=== PATIENT | female | born 1985 | race Caucasian/White ===

== ENCOUNTER 2020-04-09 06:58 | Inpatient (IN) | payer SELFPAY ==
[~2020-04-09 06:58] MED LIST: Bupivacaine 0.25% 10 ML SDV ONE; ePHEDrine Sulfate/0.9% NaCl/Pf 25 MG/5 ML SYRINGE IV ONE
[2020-04-09] MEDS ORDERED: Nalbuphine 10 MG/1 ML Vial IVPUSH PRN (07:18)
[2020-04-09] MEDS ORDERED: Sodium Chloride 0.9% 10 ML Syringe FLUSH PRN (07:18)
[2020-04-09] MEDS ORDERED: Ondansetron 4 MG/2 ML SDV IVPUSH PRN ×2 (07:18→14:11)
--- NOTE | 2020-04-09 07:21 | PCM.LDHP ---
L&D History of Present Illness - General Date of Service: 04/09/20 Admit Problem/Dx: Patient Status Order with Admit Dx/Problem 04/09/20 07:18 Patient Status [ADT] Routine Admission Diagnosis/Problem Admission Diagnosis/Problem Normal labor Source of Information: Patient History Limitations: Reports: No Limitations - History of Present Illness Introduction:: Patient is a 34 y/o at 39 1/7 wks who presents for IOL. Doing well. No significant contractions yet - Related Data Allergies/Adverse Reactions: Allergies Allergy/AdvReac Type Severity Reaction Status Date / Time azithromycin Allergy Hives Verified 04/09/20 10:00 [From Zithromax Z-Konrad] Home Medications: Home Meds Pnv with Ca,No.71/Iron/Fa [ Vitamin Tablet] 1 each PO DAILY 12/31/13 [History] Docusate Sodium [Colace] 100 mg PO BID PRN #60 cap 01/07/14 [Rx] Calcium Carbonate [Tums] 500 mg PO ASDIRECTED PRN 04/09/20 [History] Famotidine [Pepcid] 10 mg PO BID 04/09/20 [History] Past Medical History [employer] History: Reports: : 2 Para: 1 LMP (Approximate): Psychiatric History: Reports: Anxiety - Past Surgical History Other Surgical History Comment: No past surgical history Social & Family History - Tobacco Use Tobacco Use Status *Q: Never Tobacco User - Alcohol Use Alcohol Use History: No - Recreational Drug Use Recreational Drug Use: No H&P Review of Systems - Review of Systems: Review Of Systems: See Below General: Reports: No Symptoms Pulmonary: Reports: No Symptoms Cardiovascular: Reports: No Symptoms Gastrointestinal: Reports: No Symptoms Genitourinary: Reports: No Symptoms Musculoskeletal: Reports: No Symptoms Psychiatric: Reports: No Symptoms Neurological: Reports: No Symptoms L&D Exam - Exam Exam: See Below - OB Specific Contraction Intensity: Irritability Movement: Active Heart Tones: Present Heart Tones per Min: 140 Heart Rate (FHR) Variability: Moderate (6-25 bmp) Presentation: Vertex - Coreas Score Coreas Score Cervix Position: Midposition Coreas Score Consistency: Soft Coreas Score Effacement: 31-50% Coreas Score Dilation: 1-2 cm Coreas Score Infant's Station: -3 Coreas Score Total: 5 - Exam General: Alert, Oriented, Cooperative Lungs: Clear to Auscultation, Normal Respiratory Effort Cardiovascular: Regular Rate, Regular Rhythm GI/Abdominal Exam: Soft, Non-Tender Genitourinary: Normal external exam Extremities: Normal Inspection Skin: Warm, Dry, Intact - Patient Data Result Diagrams: 04/09/20 07:54 - Problem List (1) 39 weeks gestation of SNOMED Code(s): 54708618 ICD Code: Z3A.39 - 39 WEEKS GESTATION OF Status: Acute Current Visit: Yes (2) Rh negative state in antepartum period SNOMED Code(s): 775435968 ICD Code: O26.899 - OTH RELATED CONDITIONS, UNSPECIFIED TRIMESTER; Z67.91 - UNSPECIFIED BLOOD TYPE, RH NEGATIVE Status: Acute Current Visit: Yes Problem List Initiated/Reviewed/Updated: Yes Orders Last 24hrs: Active Orders 24 hr Category Date Time Status Patient Status [ADT] Routine ADT 04/09/20 07:18 Ordered Activity as Tolerated [RC] PFP Care 04/09/20 07:18 Ordered Communication Order [RC] ASDIRECTED Care 04/09/20 07:18 Ordered Communication Order [RC] ASDIRECTED Care 04/09/20 07:18 Ordered Communication Order [RC] ASDIRECTED Care 04/09/20 07:18 Ordered Heart Tones [RC] ASDIRECTED Care 04/09/20 07:19 Ordered Monitoring [RC] INTERMITTENT Care 04/09/20 07:18 Ordered Non Stress Test [RC] PER UNIT ROUTINE Care 04/09/20 07:18 Ordered Non Stress Test [RC] PER UNIT ROUTINE Care 04/09/20 07:18 Ordered Notify Provider [RC] ASDIRECTED Care 04/09/20 07:18 Ordered Notify Provider [RC] PFP Care 04/09/20 07:18 Ordered Notify Provider [RC] PRN Care 04/09/20 07:18 Ordered Peripheral IV Care [RC] . DIRECTED Care 04/09/20 07:19 Ordered Vaginal Exam [RC] ASDIRECTED Care 04/09/20 07:18 Ordered Vital Signs [RC] ASDIRECTED Care 04/09/20 07:18 Ordered Vital Signs [RC] PER UNIT ROUTINE Care 04/09/20 07:18 Ordered Regular Diet [DIET] Diet 04/09/20 Breakfast Ordered CBC W/O DIFF,HEMOGRAM [HEME] Routine Lab 04/09/20 07:18 Ordered RAPID PLASMA REAGIN,RPR [CHEM] Routine Lab 04/09/20 07:18 Ordered TYPE AND SCREEN [BBK] Routine Lab 04/09/20 07:18 Ordered Lactated Ringers [Ringers, Lactated] 1,000 ml Med 04/09/20 07:30 Ordered IV ASDIRECTED Lactated Ringers [Ringers, Lactated] 1,000 ml Med 04/09/20 07:30 Ordered IV ASDIRECTED Nalbuphine [Nubain] Med 04/09/20 07:18 Ordered 10 mg IVPUSH Q2H PRN Ondansetron [Zofran] Med 04/09/20 07:18 Ordered 4 mg IVPUSH Q4H PRN Oxytocin/Lactated Ringers [Pitocin in LR 10 Units/1,000 Med 04/09/20 07:30 Ordered ML] 10 unit in 1,000 ml IV .CONTINUOUS Oxytocin/Lactated Ringers [Pitocin in LR 10 Units/1,000 Med 04/09/20 07:30 Ordered ML] 10 unit in 1,000 ml IV TITRATE Sodium Chloride 0.9% [Saline Flush] Med 04/09/20 07:18 Ordered 10 ml FLUSH ASDIRECTED PRN Electronic Heart Tones Ext w TOCO [WOMSER] Oth 04/09/20 07:18 Ordered Routine Electronic Heart Tones Internal [WOMSER] Per Unit Oth 04/09/20 07:18 Ordered Routine Peripheral IV Insertion Adult [OM.PC] Routine Oth 04/09/20 07:18 Ordered Peripheral IV Insertion Adult [OM.PC] Routine Ot 04/09/20 07:18 Ordered Assessment/Plan Comment:: * Labs * GBS negative * Pitocin and then AROM for IOL * Pain management per patient preference * Anticipate
[2020-04-09] MEDS ORDERED: Lactated Ringers 1,000 ML IV SCH (07:30)
[2020-04-09] MEDS ORDERED: Oxytocin/Lactated Ringers 10 UNIT/1,000 ML BAG IV SCH ×2 (07:30)
[2020-04-09] MEDS: Lactated Ringers 1,000 ML IV SCH ×2 (07:55→13:47)
--- NOTE | 2020-04-09 11:50 | PCM.PNLD ---
Labor Progress Note - VS & Meds Vital Signs: Last Vital Signs Temp 37.0 C 04/09/20 07:29 Pulse 79 04/09/20 07:29 Resp 16 04/09/20 07:29 BP 131/85 04/09/20 07:29 Pulse Ox 100 04/09/20 07:29 Active Medications: Current Medications Lactated Ringer's (Ringers, Lactated) 1,000 mls @ 100 mls/hr IV ASDIRECTED PEYTON Last Admin: 04/09/20 07:55 Dose: 100 mls/hr Documented by: Oxytocin/Lactated Ringer's (Pitocin In Lr 10 Units/1,000 Ml) 10 unit in 1,000 mls @ 12 mls/hr IV TITRATE PEYTON; Protocol Last Admin: 04/09/20 07:55 Dose: 2 munits/min, 12 mls/hr Documented by: Oxytocin/Lactated Ringer's (Pitocin In Lr 10 Units/1,000 Ml) 10 unit in 1,000 mls @ 500 mls/hr IV .CONTINUOUS PEYTON Lactated Ringer's (Ringers, Lactated) 1,000 mls @ 40 mls/hr IV ASDIRECTED PEYTON Nalbuphine HCl (Nubain) 10 mg IVPUSH Q2H PRN PRN Reason: Pain Ondansetron HCl (Zofran) 4 mg IVPUSH Q4H PRN PRN Reason: Nausea/Vomiting Sodium Chloride (Saline Flush) 10 ml FLUSH ASDIRECTED PRN PRN Reason: Keep Vein Open - Uterine Contractions Uterine Monitoring Mode: External Fitzgerald Contraction Intensity: Mild to Moderate - Monitoring Monitor Mode: External Ultrasound Heart Rate (FHR) Baseline: 130 Heart Rate (FHR) Variability: Moderate (6-25 bmp) Accelerations: Present, 15x15 Decelerations: None Strip Review: Category I - Vaginal Exam Dilation (cm): 3 Effacement (Percent): 25 Station: -2 Cervical Position: Midposition - Labor Progress (Free Text) Labor Progress: Doing well. Pitocin at 12. AROM done with release of clear fluid. Continue present management
[2020-04-09] MEDS ORDERED: ePHEDrine 50 MG/ML SDV IVPUSH PRN (14:11)
[2020-04-09] MEDS ORDERED: diphenhydrAMINE 50 MG/ML SDV IVPUSH PRN (14:11)
[2020-04-09] MEDS ORDERED: fentaNYL 100 MCG/2 ML SDV EPIDUR PRN (14:11)
[2020-04-09] MEDS ORDERED: Bupivacaine/fentaNYL/NS 100 ML Bag EPIDUR SCH (14:15)
--- NOTE | 2020-04-09 14:15 | PCM.PREANE ---
Preanesthetic Assessment - Procedure Proposed Procedure: Epidural - Anesthesia/Transfusion/Family Hx Anesthesia History: Prior Anesthesia Without Reaction Family History of Anesthesia Reaction: No Transfusion History: No Prior Transfusion(s) Intubation History: Unknown - Review of Systems General: No Symptoms Pulmonary: No Symptoms (ETOH: occasionally when not ) Cardiovascular: No Symptoms (History of heart murmur in the past.), Palpitations Gastrointestinal: No Symptoms (GERD) Neurological: No Symptoms, Seizure (At the age of 18) Other: Reports: Easy Bruising, Depression, Anxiety - Physical Assessment NPO Status Date: 04/09/20 NPO Status Time: 14:30 Vital Signs: Last Vital Signs Temp 37.0 C 04/09/20 07:29 Pulse 79 04/09/20 07:29 Resp 16 04/09/20 07:29 BP 131/85 04/09/20 07:29 Pulse Ox 100 04/09/20 07:29 Height: 1.65 m Weight: 105.687 kg ASA Class: 2 Mental Status: Alert & Oriented x3 Airway Class: Mallampati = 2 Dentition: Reports: Normal Dentition, Caries Thyro-Mental Finger Breadths: 3 Mouth Opening Finger Breadths: 3 ROM/Head Extension: Full Lungs: Clear to Auscultation, Normal Respiratory Effort Cardiovascular: Regular Rate, Regular Rhythm, No Murmurs - Lab Values: Laboratory Last Values WBC 9.16 K/mm3 (3.98-10.04) 04/09/20 07:54 RBC 3.72 M/mm3 (3.98-5.22) L 04/09/20 07:54 Hgb 11.2 gm/dl (11.2-15.7) D 04/09/20 07:54 Hct 32.6 % (34.1-44.9) L 04/09/20 07:54 MCV 87.6 fl (79.4-94.8) D 04/09/20 07:54 MCH 30.1 pg (25.6-32.2) 04/09/20 07:54 MCHC 34.4 g/dl (32.2-35.5) 04/09/20 07:54 RDW Std Deviation 41.5 fL (36.4-46.3) 04/09/20 07:54 Plt Count 279 K/mm3 (182-369) D 04/09/20 07:54 MPV 9.2 fl (9.4-12.3) L 04/09/20 07:54 SARS-CoV-2 RNA (SHANNON) Negative (NEGATIVE) 04/09/20 08:10 Blood Type O NEGATIVE 04/09/20 07:54 Gel Antibody Screen Negative 04/09/20 07:54 Above labs reviewed and noted and within acceptable ranges to proceed with epidural if desired. - Allergies Allergies/Adverse Reactions: Allergies Allergy/AdvReac Type Severity Reaction Status Date / Time azithromycin Allergy Hives Verified 04/09/20 10:00 [From Zithromax Z-Konrad] - Anesthesia Plan Pre-Op Medication Ordered: None - Acknowledgements Anesthesia Type Planned: Epidural Pt an Appropriate Candidate for the Planned Anesthesia: Yes Alternatives and Risks of Anesthesia Discussed w Pt/Guardian: Yes Pt/Guardian Understands and Agrees with Anesthesia Plan: Yes PreAnesthesia Questionnaire - Past Health History Medical/Surgical History: Denies Medical/Surgical History HEENT History: Reports: Impaired Vision, Other (See Below) Other HEENT History: KASAAN left ear Cardiovascular History: Reports: Other (See Below) Other Cardiovascular History: Pt states she used to have a heart murmur, but now its good. Has random heart flutters, checked out all normal. Respiratory History: Reports: None Gastrointestinal History: Reports: GERD Genitourinary History: Reports: UTI, Recurrent [employer] History: Reports: Other OB/BYN History: States after 1st baby, came back after discharge d/t "uterus infection" that she needed antibiotics for. Musculoskeletal History: Reports: Other (See Below) Other Musculoskeletal History: Joint pain everywhere when up and around too much Neurological History: Reports: Seizure, Other (See Below) Other Neuro History: One seizure at 18 years old, never another one and no diagnosis Psychiatric History: Reports: Anxiety Other Psychiatric History: Once when she was 21 years old, never on medication before or since attempt Hematologic History: Reports: Anemia - Past Surgical History Other Surgical History Comment: No past surgical history - SUBSTANCE USE Tobacco Use Status *Q: Never Tobacco User Tobacco Use Within Last Twelve Months: No Recreational Drug Use History: No - HOME MEDS Home Medications: Home Meds Pnv with Ca,No.71/Iron/Fa [ Vitamin Tablet] 1 each PO DAILY 12/31/13 [History] Docusate Sodium [Colace] 100 mg PO BID PRN #60 cap 01/07/14 [Rx] Calcium Carbonate [Tums] 500 mg PO ASDIRECTED PRN 04/09/20 [History] Famotidine [Pepcid] 10 mg PO BID 04/09/20 [History] - CURRENT (IN HOUSE) MEDS Current Meds: Current Medications Diphenhydramine HCl (Benadryl) 25 mg IVPUSH Q6H PRN PRN Reason: pruritis Ephedrine Sulfate (Ephedrine Sulfate) 5 mg IVPUSH ASDIRECTED PRN PRN Reason: Hypotension Fentanyl (Sublimaze) 100 mcg EPIDUR Q3H PRN PRN Reason: Pain Fentanyl/Bupivacaine HCl (Fentanyl/Bupivacaine/Ns 2 Mcg-0.125% 100 Ml) 100 ml EPIDUR ASDIRECTED PEYTON Lactated Ringer's (Ringers, Lactated) 1,000 mls @ 100 mls/hr IV ASDIRECTED PEYTON Last Admin: 04/09/20 13:47 Dose: 100 mls/hr Documented by: Oxytocin/Lactated Ringer's (Pitocin In Lr 10 Units/1,000 Ml) 10 unit in 1,000 mls @ 12 mls/hr IV TITRATE PEYTON; Protocol Last Titration: 04/09/20 11:00 Dose: 8 munits/min, 48 mls/hr Documented by: Oxytocin/Lactated Ringer's (Pitocin In Lr 10 Units/1,000 Ml) 10 unit in 1,000 mls @ 500 mls/hr IV .CONTINUOUS PYETON Lactated Ringer's (Ringers, Lactated) 1,000 mls @ 40 mls/hr IV ASDIRECTED [facility], [facility]–1983 Miscellaneous Medication (Phenylephrine 1 Mg/10 Ml-Ns) 0 mg IVPUSH ONETIME ONE Stop: 04/09/20 14:12 Nalbuphine HCl (Nubain) 10 mg IVPUSH Q2H PRN PRN Reason: Pain Ondansetron HCl (Zofran) 4 mg IVPUSH Q4H PRN PRN Reason: Nausea/Vomiting Ondansetron HCl (Zofran) 4 mg IVPUSH ONETIME PRN PRN Reason: Nausea/Vomiting Sodium Chloride (Saline Flush) 10 ml FLUSH ASDIRECTED PRN PRN Reason: Keep Vein Open
[2020-04-09] MEDS ORDERED: Acetaminophen 325 MG Tab PO PRN (21:07)
[2020-04-09] MEDS ORDERED: Docusate Sodium 100 MG Cap PO PRN (21:07)
[2020-04-09] MEDS: Witch Hazel Medicated Pads 40/Jar TOP PRN (23:00)
[2020-04-09] MEDS: Ibuprofen 600 MG Tab PO PRN (23:30)
[2020-04-10] MEDS ORDERED: Benzocaine/Menthol 20%-0.5% Spray 56 GM Canister TOP PRN (00:14)
[2020-04-10] MEDS: Ibuprofen 600 MG Tab PO PRN ×2 (06:06→12:48)
--- NOTE | 2020-04-10 07:08 | PCM.DEL ---
L & D Note - General Info Date of Service: 04/09/20 - Delivery Note Labor: Induced by ARM, Induced by Oxytocin Delivery Outcome: Livebirth Infant Delivery Method: Spontaneous Vaginal Delivery-Single Infant Delivery Mode: Spontaneous Presentation: Right Occiput Anterior (RAQUEL) Nuchal Cord: None Anesthesia Type: Epidural Amniotic Fluid Description: Clear Episiotomy Type: None Laceration: 1st Degree Suture type: Vicryl Placenta: Intact, Spontaneous Cord: 3 Vessels Estimated Blood Loss: 100 Resuscitation Needed: Yes : Bulb Syringe, Stimulated, Warmed, Gilbert Used, Warmer Used Delivery Comments (Free Text/Narrative):: Patient progressed quickly to 8-9 cm, but then labor slowed. Eventually after restarting pitocin, turning to hands/knees was able to achieve complete dilation. With maternal pushing effort head delivered from an RAQUEL presentation. No nuchal cord present. With gentle downward traction shoulders and body delivered. Infant placed on maternal abdomen. Cord clamped and cut. Cord blood obtained. Placenta allowed time to separate and expelled intact. Inspection of perineum showed a small 1st degree laceration which was repaired with an interrupted 2-0 Vicryl. - General Info Date of Service: 04/09/20 - Patient Data Vitals - Most Recent: Last Vital Signs Temp 36.7 C 04/10/20 02:21 Pulse 82 04/10/20 02:21 Resp 15 04/10/20 02:21 BP 125/73 04/10/20 02:21 Pulse Ox 98 04/10/20 02:21 Weight - Most Recent: 105.687 kg I&O - Last 24 Hours: Intake & Output 04/09/20 04/10/20 04/10/20 22:59 06:59 14:59 Intake Total 5520 Output Total 700 Balance 4820 Lab Results Last 24 Hours: Laboratory Results - last 24 hr 04/09/20 04/09/20 04/09/20 Range/Units 07:54 07:54 07:54 WBC 9.16 (3.98-10.04) K/mm3 RBC 3.72 L (3.98-5.22) M/mm3 Hgb 11.2 D (11.2-15.7) gm/dl Hct 32.6 L (34.1-44.9) % MCV 87.6 D (79.4-94.8) fl MCH 30.1 (25.6-32.2) pg MCHC 34.4 (32.2-35.5) g/dl RDW Std Deviation 41.5 (36.4-46.3) fL Plt Count 279 D (182-369) K/mm3 MPV 9.2 L (9.4-12.3) fl RPR Non-reactive (NONREACTIVE) SARS-CoV-2 RNA (SHANNON) (NEGATIVE) Blood Type O NEGATIVE Gel Antibody Screen Negative 04/09/20 Range/Units 08:10 WBC (3.98-10.04) K/mm3 RBC (3.98-5.22) M/mm3 Hgb (11.2-15.7) gm/dl Hct (34.1-44.9) % MCV (79.4-94.8) fl MCH (25.6-32.2) pg MCHC (32.2-35.5) g/dl RDW Std Deviation (36.4-46.3) fL Plt Count (182-369) K/mm3 MPV (9.4-12.3) fl RPR (NONREACTIVE) SARS-CoV-2 RNA (SHANNON) Negative (NEGATIVE) Blood Type Gel Antibody Screen Med Orders - Current: Current Medications Acetaminophen (Tylenol) 650 mg PO Q4H PRN PRN Reason: mild pain or fever Benzocaine/Menthol (Dermoplast Pain Relief [place]) 1 gm TOP ASDIRECTED PRN PRN Reason: Perineal Comfort Measure Last Admin: 04/10/20 06:06 Dose: 1 canister Documented by: Docusate Sodium (Colace) 100 mg PO BID PRN PRN Reason: Constipation Last Admin: 04/09/20 23:30 Dose: 100 mg Documented by: Ibuprofen (Motrin) 600 mg PO Q6H PRN PRN Reason: Mild pain or fever Last Admin: 04/10/20 06:06 Dose: 600 mg Documented by: Oma Hernandez (Maricel) 1 pad TOP ASDIRECTED PRN PRN Reason: Perineal Comfort Measure Last Admin: 04/09/20 23:00 Dose: 1 container Documented by: Discontinued Medications Diphenhydramine HCl (Benadryl) 25 mg IVPUSH Q6H PRN PRN Reason: pruritis Ephedrine Sulfate (Ephedrine Sulfate) 5 mg IVPUSH ASDIRECTED PRN PRN Reason: Hypotension Fentanyl (Sublimaze) 100 mcg EPIDUR Q3H PRN PRN Reason: Pain Last Admin: 04/09/20 15:14 Dose: 100 mcg Documented by: Fentanyl/Bupivacaine HCl (Fentanyl/Bupivacaine/Ns 2 Mcg-0.125% 100 Ml) 100 ml EPIDUR ASDIRECTED PEYTON Last Admin: 04/09/20 15:14 Dose: 100 ml Documented by: Lactated Ringer's (Ringers, Lactated) 1,000 mls @ 100 mls/hr IV ASDIRECTED PEYTON Last Admin: 04/09/20 13:47 Dose: 100 mls/hr Documented by: Oxytocin/Lactated Ringer's (Pitocin In Lr 10 Units/1,000 Ml) 10 unit in 1,000 mls @ 12 mls/hr IV TITRATE PEYTON; Protocol Last Titration: 04/09/20 18:56 Dose: 4 munits/min, 24 mls/hr Documented by: Oxytocin/Lactated Ringer's (Pitocin In Lr 10 Units/1,000 Ml) 10 unit in 1,000 mls @ 500 mls/hr IV .CONTINUOUS PEYTON Lactated Ringer's (Ringers, Lactated) 1,000 mls @ 40 mls/hr IV ASDIRECTED [facility] Miscellaneous Medication (Phenylephrine 1 Mg/10 Ml-Ns) 0 mg IVPUSH ONETIME PEYTON Nalbuphine HCl (Nubain) 10 mg IVPUSH Q2H PRN PRN Reason: Pain Ondansetron HCl (Zofran) 4 mg IVPUSH Q4H PRN PRN Reason: Nausea/Vomiting Ondansetron HCl (Zofran) 4 mg IVPUSH ONETIME PRN PRN Reason: Nausea/Vomiting Sodium Chloride (Saline Flush) 10 ml FLUSH ASDIRECTED PRN PRN Reason: Keep Vein Open - Problem List & Annotations (1) 39 weeks gestation of SNOMED Code(s): 25980892 Code(s): Z3A.39 - 39 WEEKS GESTATION OF Status: Acute Current Visit: Yes (2) Rh negative state in antepartum period SNOMED Code(s): 740791137 Code(s): O26.899 - OTH RELATED CONDITIONS, UNSPECIFIED TRIMESTER; Z67.91 - UNSPECIFIED BLOOD TYPE, RH NEGATIVE Status: Acute Current Visit: Yes (3) Vaginal delivery SNOMED Code(s): 293510082 Code(s): O80 - ENCOUNTER FOR FULL-TERM UNCOMPLICATED DELIVERY Status: Acute Current Visit: No - Problem List Review Problem List Initiated/Reviewed/Updated: Yes - My Orders Last 24 Hours: My Active Orders 04/09/20 Dinner Regular Diet [DIET] 04/09/20 21:07 Acetaminophen [TylenoL] 650 mg PO Q4H PRN Docusate Sodium [Colace] 100 mg PO BID PRN Ibuprofen [Motrin] 600 mg PO Q6H PRN witch Fer [Tucks] 1 pad TOP ASDIRECTED PRN Heat Therapy [OM.PC] PRN 04/09/20 21:07 Activity as Tolerated [RC] PER UNIT ROUTINE Vital Signs [RC] 03,,15,21 Assess Lochia [WOMSER] Per Unit Routine Assess Uterine Involution [WOMSER] Per Unit Routine Breast Pump [WOMSER] Per Unit Routine Ice Therapy [OM.PC] Per Unit Routine Perineal Care [OM.PC] Per Unit Routine Peripheral IV Discontinue [OM.PC] Routine Sitz Bath [OM.PC] Per Unit Routine 04/10/20 00:14 Benzocaine/Menthol [Dermoplast Pain Relief [place]] 1 gm TOP ASDIRECTED PRN 04/10/20 21:07 Heat Therapy [OM.PC] PRN - Assessment Assessment:: PPD#0 - Plan Plan:: * Routine cares * Breast feeding * Assess baby blood type following delivery * Discharge home in 1-2 days
--- NOTE | 2020-04-10 07:37 | PCM48HPAN ---
Post Anesthesia Note - EVALUATION WITHIN 48HRS OF ANESTHETIC Vital Signs in Normal Range: Yes Patient Participated in Evaluation: Yes Respiratory Function Stable: Yes Airway Patent: Yes Cardiovascular Function Stable: Yes Hydration Status Stable: Yes Pain Control Satisfactory: Yes Nausea and Vomiting Control Satisfactory: Yes Mental Status Recovered: Yes Vital Signs: Last Vital Signs Temp 36.7 C 04/10/20 02:21 Pulse 82 04/10/20 02:21 Resp 15 04/10/20 02:21 BP 125/73 04/10/20 02:21 Pulse Ox 98 04/10/20 02:21
[2020-04-10] MEDS: Witch Hazel Medicated Pads 40/Jar TOP PRN (12:52)
--- NOTE | 2020-04-10 18:02 | PCM.DCSUM1 ---
Discharge Summary - Discharge Data Discharge Date: 04/10/20 Discharge Disposition: Home, Self-Care 01 Condition: Good - Referral to Home Health Primary Care Physician: Aparna Bethea MD - Discharge Diagnosis/Problem(s) (1) 39 weeks gestation of SNOMED Code(s): 90344343 ICD Code: Z3A.39 - 39 WEEKS GESTATION OF Status: Acute Current Visit: Yes (2) Rh negative state in antepartum period SNOMED Code(s): 332232752 ICD Code: O26.899 - OTH RELATED CONDITIONS, UNSPECIFIED TRIMESTER; Z67.91 - UNSPECIFIED BLOOD TYPE, RH NEGATIVE Status: Acute Current Visit: Yes (3) Vaginal delivery SNOMED Code(s): 386717148 ICD Code: O80 - ENCOUNTER FOR FULL-TERM UNCOMPLICATED DELIVERY Status: Acute Current Visit: No - Patient Summary/Data Complications: None Consults: None Recommended Follow-up Testing/Procedures: Follow up in 3 weeks for check Hospital Course: 34 y/o at 39 1/7 wks presented for elective IOL. Done with pitocin and AROM. Progressed well to complete dilation. Underwent an uncomplicated . See delivery note. did well and was discharged home on PPD#1 - Patient Instructions Diet: Regular Diet as Tolerated Activity: As Tolerated Activity, Other: Pelvic rest for 6 weeks Driving: May Drive Today Showering/Bathing: May Shower Showering/Bathing, Other: May Bathe Notify Provider of: Fever, Increased Pain, Swelling and Redness, Drainage, Nausea and/or Vomiting - Discharge Plan *PRESCRIPTION DRUG MONITORING PROGRAM REVIEWED*: No *COPY OF PRESCRIPTION DRUG MONITORING REPORT IN PATIENT JESSE: No Home Medications: Home Meds Pnv with Ca,No.71/Iron/Fa [ Vitamin Tablet] 1 each PO DAILY 12/31/13 [History] Docusate Sodium [Colace] 100 mg PO BID PRN #60 cap 01/07/14 [Rx] Ibuprofen [Motrin] 600 mg PO Q6H PRN tablet 04/10/20 [Rx] Referrals: Aparna Bethea MD [Primary Care Provider] - ( check around 3 weeks, can be in person or telehealth ) - Discharge Summary/Plan Comment DC Time >30 min.: No - Patient Data Vitals - Most Recent: Last Vital Signs Temp 36.3 C 04/10/20 15:29 Pulse 83 04/10/20 15:29 Resp 16 04/10/20 15:29 BP 123/75 04/10/20 15:29 Pulse Ox 96 04/10/20 15:29 Weight - Most Recent: 105.687 kg I&O - Last 24 hours: Intake & Output 04/10/20 04/10/20 04/10/20 06:59 14:59 22:59 Intake Total 180 180 Balance 180 180 Lab Results - Last 24 hrs: Laboratory Results - last 24 hr 04/09/20 Range/Units 07:54 RPR Non-reactive (NONREACTIVE) Med Orders - Current: Current Medications Acetaminophen (Tylenol) 650 mg PO Q4H PRN PRN Reason: mild pain or fever Benzocaine/Menthol (Dermoplast Pain Relief [place]) 1 gm TOP ASDIRECTED PRN PRN Reason: Perineal Comfort Measure Last Admin: 04/10/20 06:06 Dose: 1 canister Documented by: Docusate Sodium (Colace) 100 mg PO BID PRN PRN Reason: Constipation Last Admin: 04/09/20 23:30 Dose: 100 mg Documented by: Ibuprofen (Motrin) 600 mg PO Q6H PRN PRN Reason: Mild pain or fever Last Admin: 04/10/20 12:48 Dose: 600 mg Documented by: Oma Hernandez (Maricel) 1 pad TOP ASDIRECTED PRN PRN Reason: Perineal Comfort Measure Last Admin: 04/10/20 12:52 Dose: 1 container Documented by: Discontinued Medications Diphenhydramine HCl (Benadryl) 25 mg IVPUSH Q6H PRN PRN Reason: pruritis Ephedrine Sulfate (Ephedrine Sulfate) 5 mg IVPUSH ASDIRECTED PRN PRN Reason: Hypotension Fentanyl (Sublimaze) 100 mcg EPIDUR Q3H PRN PRN Reason: Pain Last Admin: 04/09/20 15:14 Dose: 100 mcg Documented by: Fentanyl/Bupivacaine HCl (Fentanyl/Bupivacaine/Ns 2 Mcg-0.125% 100 Ml) 100 ml EPIDUR ASDIRECTED PEYTON Last Admin: 04/09/20 15:14 Dose: 100 ml Documented by: Lactated Ringer's (Ringers, Lactated) 1,000 mls @ 100 mls/hr IV ASDIRECTED [facility] Last Admin: 04/09/20 13:47 Dose: 100 mls/hr Documented by: Oxytocin/Lactated Ringer's (Pitocin In Lr 10 Units/1,000 Ml) 10 unit in 1,000 mls @ 12 mls/hr IV TITRATE PEYTON; Protocol Last Titration: 04/09/20 18:56 Dose: 4 munits/min, 24 mls/hr Documented by: Oxytocin/Lactated Ringer's (Pitocin In Lr 10 Units/1,000 Ml) 10 unit in 1,000 mls @ 500 mls/hr IV .CONTINUOUS PEYTON Lactated Ringer's (Ringers, Lactated) 1,000 mls @ 40 mls/hr IV ASDIRECTED PEYTON Miscellaneous Medication (Phenylephrine 1 Mg/10 Ml-Ns) 0 mg IVPUSH ONETIME PEYTON Nalbuphine HCl (Nubain) 10 mg IVPUSH Q2H PRN PRN Reason: Pain Ondansetron HCl (Zofran) 4 mg IVPUSH Q4H PRN PRN Reason: Nausea/Vomiting Ondansetron HCl (Zofran) 4 mg IVPUSH ONETIME PRN PRN Reason: Nausea/Vomiting Sodium Chloride (Saline Flush) 10 ml FLUSH ASDIRECTED PRN PRN Reason: Keep Vein Open
[2020-04-11 01:51] VITALS: BP 138/88; PULSE 76
== END 2020-04-10 21:15 | disposition home or self-care (01) | DRG 807 ==
LOC: JD.OB 06:58 → OBSVTOIN 19:39 → JD.OB 19:40
PROVIDERS: ADMIT Obstetrics & Gynecology; ATTEND Obstetrics & Gynecology
PROC: 10E0XZZ Delivery of Products of Conception, External Approach (ICD-10-PCS; principal; 2020-04-09)
PROC: 10907ZC Drainage of Amniotic Fluid, Therapeutic from Products of Conception, Via Natural or Artificial Opening (ICD-10-PCS; 2020-04-09)
PROC: 3E033VJ Introduction of Other Hormone into Peripheral Vein, Percutaneous Approach (ICD-10-PCS; 2020-04-09)
PROC: 0HQ9XZZ Repair Perineum Skin, External Approach (ICD-10-PCS; 2020-04-09)
PROC: 3E0R3BZ Introduction of Anesthetic Agent into Spinal Canal, Percutaneous Approach (ICD-10-PCS; 2020-04-09)
DX: O70.0 First degree perineal laceration during delivery (principal); Z37.0 Single live birth; Z3A.39 39 weeks gestation of pregnancy; Z20.828 Contact with and (suspected) exposure to other viral communicable diseases
CPT/HCPCS: 36415; 51701; 51702; 59025; 59409; 85027; 86592; 86850; 86900; 86901; A9270-GY; J0171; J2590; J3010; J3490; J7120; U0002